=== PATIENT | male | born 1995 ===

== ENCOUNTER 2019-09-24 23:54 | Emergency (ER) | payer SELFPAY ==
[2019-09-25 00:42] VITALS: BP 110/54
--- NOTE | 2019-09-25 00:49 | XRay Report ---
CHEST 1 VIEW INDICATION / CLINICAL INFORMATION: Trauma. Chest pain COMPARISON: None available. FINDINGS: SUPPORT DEVICES: None. HEART / MEDIASTINUM: No significant abnormality. LUNGS / PLEURA: No significant pulmonary or pleural abnormality. No pneumothorax. ADDITIONAL FINDINGS: No significant additional findings. IMPRESSION: 1. No acute findings. Signer Name: Pablo Godfrey MD Signed: 09/25/2019 12:45 AM Workstation Name: [email or web address]
[2019-09-25 01:08] LABS: Basophils % (Auto) 0.2 % (0.0-1.8); Eosinophils # (Auto) 0.1 K/mm3 (0.0-0.4); Eosinophils % (Auto) 0.7 % (0.0-4.3); Hematocrit 46.8 % (35.5-45.6); Hemoglobin 15.8 gm/dl (11.8-15.2); Lymphocytes # (Auto) 3.5 K/mm3 (1.2-5.4); Lymphocytes % (Auto) 26.3 % (13.4-35.0); Mean Corpuscular HGB Conc 34 % (32-34); Mean Corpuscular Volume 90 fl (84-94); Monocytes # (Auto) 0.6 K/mm3 (0.0-0.8); Monocytes % (Auto) 4.5 % (0.0-7.3); Red Blood Count 5.19 M/mm3 (3.65-5.03); Red Cell Distribution Width 13.3 % (13.2-15.2)
--- NOTE | 2019-09-25 01:09 | Emergency Department Report ---
ED General Adult HPI - General Chief complaint: Altered Mental Status Stated complaint: ETOH PUI?: No Time Seen by Provider: 09/25/19 00:04 Source: EMS (Verbal report received from emergency medical services. EMS documentation not available at time of chart dictation ), RN notes reviewed Mode of arrival: Stretcher Limitations: Altered Mental Status - History of Present Illness Initial comments: Patient is a 24-year-old gentleman who is not known to myself previously. He is brought to the hospital by emergency medical services with a complaint of fall, and alcohol intoxication. The specific details are uncertain. The pa veronica himself is intoxicated, and cannot provide additional information or collateral information. The patient is not accompanied by friends, family or anybody else who can provide additional information. In the emergency room, he is sleepy, saturating well on room air, he is found to have an occipital scalp laceration, no other injuries noted. No other history is available at this time. -: This evening Location: head Quality: other Consistency: other Improves with: other Worsens with: other Associated Symptoms: other - Related Data Previous Rx's Medication Instructions Recorded Last Taken Type Multivitamin with Folic Acid [[facility] 400 mcg PO QDAY #30 tablet 09/25/19 Unknown Rx One Daily Essential Tablet] Ondansetron [Zofran Odt] 4 mg PO Q8HR PRN #20 tab.rapdis 09/25/19 Unknown Rx Allergies Allergy/AdvReac Type Severity Reaction Status Date / Time No Known Allergies Allergy Unverified 09/25/19 03:00 ED Review of Systems ROS: Stated complaint: ETOH Other details as noted in HPI Comment: Unobtainable due to pts medical conditions ED Past Medical Hx - Social History Smoking Status: Unknown if ever smoked Substance Use Type: Alcohol - Medications Home Medications: Home Medications Medication Instructions Recorded Confirmed Last Taken Type Multivitamin with Folic Acid [[facility] 400 mcg PO QDAY #30 tablet 09/25/19 Unknown Rx One Daily Essential Tablet] Ondansetron [Zofran Odt] 4 mg PO Q8HR PRN #20 tab.rapdis 09/25/19 Unknown Rx ED Physical Exam - General Limitations: Altered Mental Status General appearance: appears intoxicated, lethargic - Head Head exam: Present: normocephalic - Eye Eye exam: Present: normal appearance - ENT ENT exam: Present: normal exam, normal orophraynx, mucous membranes moist - Neck Neck exam: Present: normal inspection - Respiratory Respiratory exam: Present: rhonchi. Absent: respiratory distress - Cardiovascular Cardiovascular Exam: Present: regular rate, normal rhythm, normal heart sounds. Absent: bradycardia, tachycardia, irregular rhythm, systolic murmur, diastolic murmur, rubs, gallop - GI/Abdominal GI/Abdominal exam: Present: soft. Absent: distended, tenderness, guarding, rebound, rigid, pulsatile mass - Rectal Rectal exam: Present: deferred - Extremities Exam Extremities exam: Present: normal inspection, other (2+ pulses noted in the bilateral upper and lower extremities. There is no palpable cord. negative Homans sign. Muscular compartments are soft. The pelvis is stable.). Absent: pedal edema, calf tenderness - Back Exam Back exam: Present: normal inspection. Absent: tenderness, CVA tenderness (R), CVA tenderness (L), paraspinal tenderness, vertebral tenderness - Neurological Exam Neurological exam: Present: altered, other (Patient is awake. The patient does not speak. Eyes open spontaneously. Detailed neurologic examination not possible secondary to altered mental status and intoxication) - Skin Skin exam: Present: warm, dry, intact, normal color, other (There is a 1 cm occipital scalp laceration). Absent: rash ED Course Vital Signs 09/25/19 09/25/19 09/25/19 00:14 00:16 00:30 Temperature 98.3 F Pulse Rate 70 76 80 Respiratory 20 18 19 Rate Blood Pressure 99/52 110/54 O2 Sat by Pulse 96 96 97 Oximetry - Reevaluation(s) Reevaluation #1: 09/25/19 01:09 Differential diagnosis, including but not limited to: Intracranial injury, cervical spine injury, alcohol intoxication, electrolyte derangement Assessment and plan: 24-year-old gentleman with alcohol intoxication, with blunt head trauma. CT scan brain and cervical spine ordered. Cervical collar ordered. We will stable his scalp laceration once his CT scans have resulted. Appropriate laboratory studies will also be obtained. Reevaluation #2: 09/25/19 03:53 CT scan brain and cervical spine negative. Laboratory studies are reviewed and appreciated. X-rays reviewed and appreciated. Cervical collar was discontinued. Patient still intoxicated, but sleeping. He is protecting his airway at this time. Patient may be discharged once clinically sober, or once a sober adult can come by and pick him up. Reevaluation #3: 09/25/19 04:36 Patient now more awake. No active vomiting. He is clinically improved, and observed in this department for nearly 5 hours. Nursing team to contact family or sober adult to pick patient up. - Laceration /Wound Repair Left Posterior Head Wound Location: head Wound Length (cm): 1 Wound's Depth, Shape: superficial, linear Wound Explored: clean Progress: Wound closed with 2 interrupted eliot. Patient tolerated the procedure dave quately ED Medical Decision Making - Lab Data Result diagrams: 09/25/19 00:44 09/25/19 00:44 Vital Signs 09/25/19 09/25/19 09/25/19 00:14 00:16 00:30 Pulse Rate 70 76 80 Respiratory 20 18 19 Rate Blood Pressure 99/52 110/54 O2 Sat by Pulse 96 96 97 Oximetry Vital Signs 09/25/19 09/25/19 09/25/19 00:14 00:16 00:30 Pulse Rate 70 76 80 Respiratory 20 18 19 Rate Blood Pressure 99/52 110/54 O2 Sat by Pulse 96 96 97 Oximetry Labs 09/25/19 09/25/19 09/25/19 00:42 00:44 00:44 WBC 13.3 H RBC 5.19 H Hgb 15.8 H Hct 46.8 H MCV 90 MCH 31 MCHC 34 RDW 13.3 Plt Count 178 Lymph % (Auto) 26.3 [place] % (Auto) 4.5 Eos % (Auto) 0.7 Baso % (Auto) 0.2 Lymph # 3.5 [place] # 0.6 Eos # 0.1 Baso # 0.0 Seg Neutrophils % 68.3 Seg Neutrophils # 9.1 H Sodium 141 Potassium 3.5 L Chloride 100.7 Carbon Dioxide 21 L Anion Gap 23 BUN 18 Creatinine 1.1 Estimated GFR > 60 BUN/Creatinine Ratio 16 Glucose 126 H POC Glucose 117 H Calcium 8.7 Magnesium Total Bilirubin < 0.20 AST 26 ALT 17 Alkaline Phosphatase 73 Total Creatine Kinase 203 H Total Protein 7.7 Albumin 4.9 Albumin/Globulin Ratio 1.8 09/25/19 00:44 WBC RBC Hgb Hct MCV MCH MCHC RDW Plt Count Lymph % (Auto) [place] % (Auto) Eos % (Auto) Baso % (Auto) Lymph # [place] # Eos # Baso # Seg Neutrophils % Seg Neutrophils # Sodium Potassium Chloride Carbon Dioxide Anion Gap BUN Creatinine Estimated GFR BUN/Creatinine Ratio Glucose POC Glucose Calcium Magnesium 2.50 H Total Bilirubin AST ALT Alkaline Phosphatase Total Creatine Kinase 201 H Total Protein Albumin Albumin/Globulin Ratio - EKG Data EKG shows normal: sinus rhythm Rate: normal - EKG Data 09/25/19 01:03 There is no prior EKG available for comparison. Sinus rhythm, 65 bpm, normal axis, normal intervals, high left ventricular voltage, the EKG is not a STEMI, there is no prior EKG available for comparison. - Radiology Data Radiology results: pending, report reviewed, image reviewed Print Report Referring Physician: HIEN KOROMA Patient Name: EHSAN ESPINOZA Date of : 1995 Sex: Male Report Date: 2019-09-25 Report Status: Finalized Findings [facility] [address] [place] [address] XRay Report Signed Patient: EHSAN ESPINOZA MR#: [id number] : 1995 Acct:[id number] Age/Sex: 24 / M ADM Date: 09/24/19 Loc: ED Attending Dr: Ordering Physician: HIEN KOROMA MD Date of Service: 09/25/19 Procedure(s): XR chest 1V ap Accession Number(s): [id number] cc: HIEN KOROMA MD Fluoro Time In Minutes: CHEST 1 VIEW INDICATION / CLINICAL INFORMATION: Trauma. Chest pain COMPARISON: None available. FINDINGS: SUPPORT DEVICES: None. HEART / MEDIASTINUM: No significant abnormality. LUNGS / PLEURA: No significant pulmonary or pleural abnormality. No pneumothorax. ADDITIONAL FINDINGS: No significant additional findings. IMPRESSION: 1. No acute findings. Signer Name: Pablo Godfrey MD Signed: 09/25/2019 12:45 AM Workstation Name: [id number] Transcribed By: BC Dictated By: Pablo Godfrey MD Electronically Authenticated By: Pablo Godfrey MD Signed Date/Time: 09/25/1944 DD/ TD/TT: Print Report Referring Physician: HIEN KOROMA Patient Name: EHSAN ESPINOZA Date of : 1995 Sex: Male Report Date: 2019-09-25 Report Status: Finalized Findings [address] [address] Cat Scan Report Signed Patient: EHSAN ESPINOZA MR#: [id number] : 1995 Acct:[id number] Age/Sex: 24 / M ADM Date: 09/24/19 Loc: ED Attending Dr: Ordering Physician: HIEN KOROMA MD Date of Service: 09/25/19 Procedure(s): CT head/brain wo con Accession Number(s): [id number] cc: HIEN KOROMA MD CT head without contrast INDICATION : Headache following injury TECHNIQUE: Axial imaging performed from the skull apex through the skull base without the use of contrast. All CT examinations performed at this facility utilize dose modulation, iterative reconstruction or weight-based dosing, when appropriate, to reduce radiation dose to as low as reasonably achievable. COMPARISON: None FINDINGS: No acute intracranial hemorrhage or parenchymal abnormality. Ventricles are normal in size and appear symmetric. Soft tissues including the orbits appear normal. No acute osseous abnormality. Sinuses and mastoid air cells are clear. IMPRESSION: No acute abnormality. Signer Name: Pablo Godfrey MD Signed: 09/25/2019 1:34 AM Workstation Name: [id number] Transcribed By: BC Dictated By: Pablo Godfrey MD Electronically Authenticated By: Pablo Godfrey MD Signed Date/Time: 09/25/19133 DD/ 2 TD/TT: Print Report Referring Physician: HIEN KOROMA Patient Name: EHSAN ESPINOZA Date of : 1995 Sex: Male Report Date: 2019-09-25 Report Status: Finalized Findings [facility] [address] [place] [address] Cat Scan Report Signed Patient: EHSAN ESPINOZA MR#: [id number] : 1995 Acct:[id number] Age/Sex: 24 / M ADM Date: 09/24/19 Loc: ED Attending Dr: Ordering Physician: HIEN KOROMA MD Date of Service: 09/25/19 Procedure(s): CT cervical spine wo con Accession Number(s): [id number] cc: HIEN KOROMA MD CT CERVICAL SPINE WITHOUT CONTRAST HISTORY: Neck pain following injury COMPARISON: None TECHNIQUE: CT images of the cervical spine were obtained without contrast. Sagittal and coronal reformats were post-processed. CONTRAST: None. FINDINGS: Alignment: Normal. Vertebrae:No significant abnormality. Disc Spaces: No significant abnormality allowing for lack of intrathecal contrast. Facet Joints:No significant abnormality. Craniocervical Junction:No significant abnormality. Prevertebral Soft Tissues:No significant abnormality. Lung Apices: No significant abnormality. Additional Findings: None IMPRESSION: 1. No significant abnormality. Signer Name: Pablo Godfrey MD Signed: 09/25/2019 1:38 AM Workstation Name: [id number] Transcribed By: BC Dictated By: Pablo Godfrey MD Electronically Authenticated By: Pablo Godfrey MD Signed Date/Time: 09/25/19137 DD/ 6 TD/TT: Critical care attestation.: If time is entered above; I have spent that time in minutes in the direct care of this critically ill patient, excluding procedure time. ED Disposition Clinical Impression: Alcohol intoxication Qualifiers: Complication of substance-induced condition: uncomplicated Qualified Code(s): F10.920 - Alcohol use, unspecified with intoxication, uncomplicated Scalp laceration Qualifiers: Encounter type: initial encounter Qualified Code(s): S01.01XA - Laceration without foreign body of scalp, initial encounter Disposition: - TO HOME OR SELFCARE Is pt being admited?: No Does the pt Need Aspirin: No Condition: Stable Additional Instructions: Please avoid/minimize consumption of alcohol. Make certain to drink plenty of fluids, recommend take a multivitamin on a daily basis, which can be purchased [id number]. Scalp may be washed with gentle soap and water once every 12-24 hours. Scalp eliot may be taken out in 10 to 14 days. Patient may follow-up with a primary care doctor, urgent care center, or return to the emergency room to have the eliot taken out. Do not drive or operate motor vehicles until cleared to do so by a primary care doctor. Return to the emergency room right away with new pain, worsening pain, migration of pain, projectile vomiting, change in mental status, confusion, inability to tolerate liquid feeds, new, worsened or different symptoms not present on the initial emergency room evaluation. Prescriptions: Multivitamin with Folic Acid [[facility]vs One Daily Essential Tablet] 400 mcg PO QDAY #30 tablet Ondansetron [Zofran Odt] 4 mg PO Q8HR PRN #20 tab.rapdis PRN Reason: Nausea Referrals: [facility] [Provider Group] - as needed
[2019-09-25 01:12] LABS: Alanine Aminotransferase 17 units/L (7-56); Albumin 4.9 g/dL (3.9-5); BUN/Creatinine Ratio 16; Blood Urea Nitrogen 18 mg/dL (9-20); Calcium 8.7 mg/dL (8.4-10.2); Hemolysis Index 10
[2019-09-25 01:14] LABS: Platelet Count 178 K/mm3 (140-440)
[2019-09-25 01:18] LABS: INR 1.06 (0.87-1.13)
[2019-09-25] MEDS ORDERED: SODIUM CHLORIDE 0.9% 1000 ML 1,000 ML IV ONE (01:30)
[2019-09-25] MEDS ORDERED: ONDANSETRON 4 MG/2 ML INJ ONE (01:35)
[2019-09-25] MEDS ORDERED: SODIUM CHLORIDE 0.9% 1000 ML 1,000 ML ONE (01:35)
--- NOTE | 2019-09-25 01:39 | Cat Scan Report ---
CT head without contrast INDICATION : Headache following injury TECHNIQUE: Axial imaging performed from the skull apex through the skull base without the use of con trast. All CT examinations performed at this facility utilize dose modulation, iterative reconstruct ion or weight-based dosing, when appropriate, to reduce radiation dose to as low as reasonably achiev able. COMPARISON: None FINDINGS: No acute intracranial hemorrhage or parenchymal abnormality. Ventricles are normal in si ze and appear symmetric. Soft tissues including the orbits appear normal. No acute osseous abnorm ality. Sinuses and mastoid air cells are clear. IMPRESSION: No acute abnormality. Signer Name: Pablo Godfrey MD Signed: 09/25/2019 1:34 AM Workstation Name: [id number]
--- NOTE | 2019-09-25 01:42 | Cat Scan Report ---
CT CERVICAL SPINE WITHOUT CONTRAST HISTORY: Neck pain following injury COMPARISON: None TECHNIQUE: CT images of the cervical spine were obtained without contrast. Sagittal and coronal refo rmats were post-processed. CONTRAST: None. FINDINGS: Alignment: Normal. Vertebrae:No significant abnormality. Disc Spaces: No significant abnormality allowing for lack of intrathecal contrast. Facet Joints:No significant abnormality. Craniocervical Junction:No significant abnormality. Prevertebral Soft Tissues:No significant abnormality. Lung Apices: No significant abnormality. Additional Findings: None IMPRESSION: 1. No significant abnormality. Signer Name: Pablo Godfrey MD Signed: 09/25/2019 1:38 AM Workstation Name: [id number]
[2019-09-25] MEDS ORDERED: ONDANSETRON 4 MG/2 ML INJ IV ONE (01:45)
[2019-09-25] MEDS ORDERED: D5W/0.45% NACL 1,000 ML IV SCH (02:00)
== END 2019-09-25 05:33 | disposition home or self-care (01) ==
LOC: ED 23:54
DX: S01.01XA Laceration without foreign body of scalp, initial encounter (principal); F10.929 Alcohol use, unspecified with intoxication, unspecified; R41.82 Altered mental status, unspecified; Z79.899 Other long term (current) drug therapy; W18.30XA Fall on same level, unspecified, initial encounter; Y93.89 Activity, other specified; Y92.89 Other specified places as the place of occurrence of the external cause; Y99.8 Other external cause status
CPT/HCPCS: 12001; 36415; 70450; 71045; 72125; 80053; 82550; 82962; 83735; 85025; 85610; 93005; 96361; 96374; 99285; J2405; J7030; 80320; G0480